=== PATIENT | female | born 1975 | race Caucasian/White ===

== ENCOUNTER 2024-11-19 13:52 | Emergency (ER) | payer OTHER, SELFPAY ==
--- NOTE | ~2024-11-19 | XR_ITS ---
CLINICAL HISTORY: back pain 3 views lumbar spine Comparison: None provided Findings: No listhesis. No acute fractures or dislocation. Mild degenerative disc disease at L4-L5 and L5-S1. IMPRESSION: 1. No acute osseous injury. This document has been electronically signed by: Lorena Jj MD on 11/19/2024 15:42:08
--- NOTE | ~2024-11-19 | XR_ITS ---
CLINICAL HISTORY: pain 3 view, pelvis and right hip Comparison: None provided Findings: No acute fracture or dislocation. Mild bilateral hip osteoarthritis. The soft tissues are unremarkable. IMPRESSION: 1. No acute osseous injury. This document has been electronically signed by: Lorena Jj MD on 11/19/2024 15:41:08
[2024-11-19 14:17] VITALS: BP 155/77; PULSE 88; RESP 18; O2SAT 98; BMI 26.6
--- NOTE | 2024-11-19 14:21 | ED.BACK ---
HPI - Back Pain/Injury General Chief Complaint: Back Pain/Injury Stated Complaint: sciatic pain on back numbness on right leg Time Seen by Provider: 11/19/24 16:21 Source: patient and RN notes reviewed Mode of arrival: ambulatory Limitations: no limitations History of Present Illness ED Provider: Libby De León PA-C HPI Narrative: This is a [id number]- female who presents to the ER with complaints of back pain. Reports that for 1 week she has had pain in her right low back. Pain starts into right low back and into the right leg. No recent falls, injury, heavy lifting or trauma. Reports hx of right hip dislocation, went to physical therapy on thursday and performed some stretches and believes that this exacerbated her back pain. No saddle anesthesia, no urinary or bowel incontinence/retention. No urinary symptoms. Pain worsens with movement and with palpation. No other complaints or concerns at this time. MD elicited complaint: back pain and back injury Pertinent past history: prior back pain Onset (ago): day(s) Timing: constant Exacerbating factors: none Relieving factors: none Associated symptoms: denies other symptoms Related Data Previous Rx's ?Medication ?Instructions ?Recorded acetaminophen 500 mg tablet 500 - 1,000 mg (1 - 2 x 500 mg) PO 11/19/24 (Tylenol Extra Strength) Q8H PRN pain #30 tabs cyclobenzaprine 10 mg tablet 10 mg PO TID PRN muscle spasm #10 11/19/24 tabs ibuprofen 600 mg tablet 600 mg PO Q6H PRN pain #30 tabs 11/19/24 lidocaine 5 % topical patch 1 patch topical DAILY #30 ea 11/19/24 prednisone 20 mg tablet 40 mg (2 x 20 mg) PO DAILY 5 days 11/19/24 #10 tabs Allergies Allergy/AdvReac Type Severity Reaction Status Date / Time No Known Allergies Allergy Verified 11/19/24 14:24 Review of Systems Review of Systems: Yes all other systems are reviewed and are negative Constitutional: Constitutional: Reports as per [facility] Social History Social History Advance Directives: No Advance Directives Information Provided: No Do you have a plan to hurt others: No Plan Physical Exam Vital Signs: Vital Signs: Last Vital Signs Temp 98 F 11/19/24 16:51 Pulse 88 11/19/24 16:51 Resp 18 11/19/24 16:51 BP 155/77 H 11/19/24 16:51 Pulse Ox 98 11/19/24 16:51 O2 Del Method Room Air 11/19/24 16:51 BMI result Body Mass Index 26.6 Const: General: cooperative, comfortable and no acute distress Orientation/consciousness: patient oriented x3 Limitations: no limitations HEENT: Head: Yes normal to inspection, Yes normocephalic and Yes atraumatic Ears: hearing grossly normal bilaterally General nose exam: Normal external nose present Face and sinus: Yes normal facial exam Mouth: Normal oral and palatal mucosa present, oropharynx normal and moist mucous membranes Throat: Yes posterior oropharynx normal Eyes: General: appearance normal, both eyes and all related structures Eyelids: Yes eyelids normal Conjunctivae: conjunctivae normal Sclerae: sclerae normal Pupils: Equal, round and reactive pupils present EOM: EOMs intact bilaterally Neck: Neck: Yes normal visual inspection, Yes full ROM and Yes no lymphadenopathy Lymphatic: no lymphadenopathy noted Chest: Chest palpation & inspection: normal inspection of the chest Resp: Effort & Inspection: normal respiratory effort and able to speak in complete sentences Auscultation: clear to auscultation bilaterally, no crackles, no rales, no rhonchi and no wheezes Cardio: Rate: regular rate Rhythm: regular rhythm Heart sounds: S1 normal heart sound present and S2 normal heart sound present GI: Inspection: Yes normal to inspection Back/Spine/Pelvis: Other: Tenderness palpation along the right SI joint and right lumbar musculature, negative straight leg raise, strength 5/5 in lower extremities. No calf tenderness. Ambulatory with steady gait. Skin: General skin exam: no rashes or lesions noted Trauma: no lacerations or abrasions Wounds: no wounds Neuro: General: patient oriented x3 and moves all extremities Cranial nerves: Yes Equal, round and reactive pupils present Extrem: General: Yes normal to inspection Right upper extremity: normal to inspection Left upper extremity: normal to inspection Right lower extremity: normal to inspection Left lower extremity: normal to inspection Medications Administered Discontinued Medications Generic Name Dose Route Start Last Admin Trade Name Freq PRN Reason Stop Dose Admin Ketorolac Tromethamine 15 mg 11/19/24 16:18 11/19/24 16:29 Ketorolac Tromethamine 15 Mg/Ml Vial IM 11/19/24 16:19 15 mg ONCE ONE Administration Medical Decision Making Medical Decision Making MDM Narrative: This is a 49-year-old female, with no known medical problems, who presents emergency department with complaints of low back pain which started 1 week ago. No known trauma or injury. On arrival, patient's blood pressure slightly elevated at 150 5/77, all other vital signs within normal limits. She is speaking full sentences under no acute distress. This patient presents with back pain most consistent with right lumbar radiculopathy.. Differential diagnoses includes lumbago versus musculoskeletal spasm / strain versus sciatica. No back pain red flags on history or physical. Presentation not consistent with malignancy (lack of history of malignancy, lack of B symptoms), fracture (no trauma, no bony tenderness to palpation), cauda equina syndrome (no bowel or urinary incontinence/retention, no saddle anesthesia, no distal weakness), pyelonephritis (afebrile, no CVAT, no urinary symptoms). X-rays were obtained revealing no acute findings, there are some degenerative changes in her spine at level L3 to S1. Discussed findings with patient. Given Toradol in the department, discharged on prednisone, anti-inflammatories, muscle relaxants, and Lidoderm patches, she will follow-up with her primary care physician on Thursday. Given strict return precautions. Patient stable for discharge. Differential Diagnosis Differential Diagnoses: The differential diagnosis associated with the presentation includes See above Radiology Impression Discussion of test interpretation with radiology: I have reviewed the radiologist's reading. Radiologist Impression: CLINICAL HISTORY: back pain 3 views lumbar spine Comparison: None provided Findings: No listhesis. No acute fractures or dislocation. Mild degenerative disc disease at L4-L5 and L5-S1. IMPRESSION: 1. No acute osseous injury. This document has been electronically signed by: Lorena Jj MD on 11/19/2024 15:42:08 Dictated By: Lorena Jj MD Findings: No acute fracture or dislocation. Mild bilateral hip osteoarthritis. The soft tissues are unremarkable. IMPRESSION: 1. No acute osseous injury. This document has been electronically signed by: Lorena Jj MD on 11/19/2024 15:41:08 Dictated By: Lorena Jj MD Discharge Plan Discharge Clinical Impression: Lumbar radiculopathy Patient Disposition: Home, Self-Care Instructions: Lumbar Radiculopathy (ED), Lower Back Exercises (ED) Additional Instructions: You were seen in the emergency department due to low back pain. Your x-ray does show degenerative changes in your L3 through S1 region. You likely have lumbar radiculopathy or sciatica, this is a condition where a nerve root in the low back is compressed or irritated causing pain, numbness, and or weakness that radiates down the leg. We had given you a medication called Toradol, this is a anti-inflammatory medication. We are also prescribing you prednisone, this is a steroid, this will help with inflammation. Take Flexeril as needed for back pain. Please be advised that this can cause drowsiness, do not drink alcohol or drive while taking this medication. Continue taking Tylenol, you can take 500 mg to a 1000 mg every 8 hours. You can also take ibuprofen 600 mg every 6 hours. Lidocaine patches can also be beneficial, applied to the region of pain. Not directly apply heat or ice to the patches this can cause moore. If any new or worsening symptoms occur including but not limited to worsening pain, loss of bladder or bowel control, numbness tingling or weakness in your private regions, please seek emergent care. Prescriptions: New prednisone 20 mg tablet 40 mg PO DAILY 5 Days Qty: 10 0RF cyclobenzaprine 10 mg tablet 10 mg PO TID PRN (Reason: muscle spasm) Qty: 10 0RF acetaminophen [Tylenol Extra Strength] 500 mg tablet 500 - 1,000 mg PO Q8H PRN (Reason: pain) Qty: 30 0RF lidocaine 5 % adhesive patch,medicated 1 patch topical DAILY Qty: 30 0RF Rx Instructions: leave on most painful area for up to 12 hrs ibuprofen 600 mg tablet 600 mg PO Q6H PRN (Reason: pain) Qty: 30 0RF Interventions: ED Discharge Assessment Last Done: 11/19/24 16:51 Discharge Date/Time: 11/19/24 16:51 Print Language: Bahamian
[2024-11-19 16:51] VITALS: BP 155/77; PULSE 88; RESP 18; TEMP 36.6; O2SAT 98
== END 2024-11-19 16:51 | disposition home or self-care (01) ==
PROVIDERS: Emergency Provider Emergency Medicine Emergency Medical Services
DX: M54.16 Radiculopathy, lumbar region (principal); M54.50 Low back pain, unspecified
CPT/HCPCS: 72100; 73502; 96372; 99283; 99284; J1885

== ENCOUNTER → 2024-11-19 14:28 | Outpatient (BNV) | payer OTHER, SELFPAY | PROVIDERS: Visit Provider Radiology Diagnostic Radiology | DX: M16.0 Bilateral primary osteoarthritis of hip (principal); M54.50 Low back pain, unspecified | CPT/HCPCS: 72100; 73502 ==